=== PATIENT | female | born 1995 | race Caucasian/White ===

== ENCOUNTER 2019-02-02 06:21 | Day surgery (SDC) | payer BC, OTHER ==
[~2019-02-02 06:21] MED LIST: Lactated Ringers 1,000 ML IV SCH
[2019-02-02] MEDS ORDERED: Lidocaine 2% 5 ML SDV ONE (07:06)
[2019-02-02] MEDS ORDERED: Propofol 200 MG/20 ML SDV ONE (07:07)
[2019-02-02] MEDS ORDERED: fentaNYL 100 MCG/2 ML SDV ONE ×2 (07:07→08:15)
[2019-02-02] MEDS ORDERED: Midazolam 1 MG/ML 2 ML SDV ONE (07:07)
--- NOTE | 2019-02-02 07:15 | PCM.PREANE ---
Preanesthetic Assessment - Anesthesia/Transfusion/Family Hx Anesthesia History: Prior Anesthesia Without Reaction Family History of Anesthesia Reaction: No Transfusion History: No Prior Transfusion(s) Intubation History: Unknown - Review of Systems General: No Symptoms Pulmonary: No Symptoms Cardiovascular: No Symptoms Gastrointestinal: No Symptoms Neurological: No Symptoms Other: Reports: None - Physical Assessment O2 Sat by Pulse Oximetry: 98 Respiratory Rate: 18 Vital Signs: Last Vital Signs Temp 36.6 C 02/02/19 06:55 Pulse 72 02/02/19 06:55 Resp 18 02/02/19 06:55 BP 119/56 L 02/02/19 06:55 Pulse Ox 98 02/02/19 06:55 Height: 1.7 m Weight: 65.317 kg ASA Class: 2 Mental Status: Alert & Oriented x3 Airway Class: Mallampati = 2 Dentition: Reports: Normal Dentition Thyro-Mental Finger Breadths: 3 Mouth Opening Finger Breadths: 3 ROM/Head Extension: Full Lungs: Clear to Auscultation, Normal Respiratory Effort Cardiovascular: Regular Rate, Regular Rhythm - Lab Values: Laboratory Last Values Urine HCG, Qual NEGATIVE (NEGATIVE) 02/02/19 06:45 - Allergies Allergies/Adverse Reactions: Allergies Allergy/AdvReac Type Severity Reaction Status Date / Time Penicillins Allergy Cannot Verified 01/30/19 13:10 Remember - Blood Blood Available: No - Anesthesia Plan Pre-Op Medication Ordered: None - Acknowledgements Anesthesia Type Planned: MAC Pt an Appropriate Candidate for the Planned Anesthesia: Yes Alternatives and Risks of Anesthesia Discussed w Pt/Guardian: Yes Pt/Guardian Understands and Agrees with Anesthesia Plan: Yes PreAnesthesia Questionnaire Other HEENT History: wears glasses/contacts Cardiovascular History: Reports: None Respiratory History: Reports: None Gastrointestinal History: Reports: None Genitourinary History: Reports: None Musculoskeletal History: Reports: None Neurological History: Reports: None Psychiatric History: Reports: None Endocrine/Metabolic History: Reports: None Hematologic History: Reports: None Immunologic History: Reports: None Oncologic (Cancer) History: Reports: None Dermatologic History: Reports: None - Past Surgical History Head Surgeries/Procedures: Reports: None HEENT Surgical History: Reports: Oral Surgery Cardiovascular Surgical History: Reports: None Respiratory Surgical History: Reports: None GI Surgical History: Reports: None Female Surgical History: Reports: None Neurological Surgical History: Reports: None Oncologic Surgical History: Reports: None Dermatological Surgical History: Reports: None - SUBSTANCE USE Smoking Status *Q: Never Smoker Recreational Drug Use History: No - HOME MEDS Home Medications: Home Meds . [No Known Home Meds] 01/30/19 [History] - CURRENT (IN HOUSE) MEDS Current Meds: Current Medications Lactated Ringer's (Ringers, Lactated) 1,000 mls @ 100 mls/hr IV ASDIRECTED CATHERINE Last Admin: 02/02/19 06:55 Dose: 100 mls/hr Discontinued Medications Fentanyl (Sublimaze) Confirm Administered Dose 100 mcg .ROUTE .STK-MED ONE Stop: 02/02/19 07:08 Lidocaine (Xylocaine-Mpf 2%) Confirm Administered Dose 5 ml .ROUTE .STK-MED ONE Stop: 02/02/19 07:07 Midazolam HCl (Versed 1 Mg/Ml) Confirm Administered Dose 2 mg .ROUTE .STK-MED ONE Stop: 02/02/19 07:08 Propofol (Diprivan 20 Ml) Confirm Administered Dose 400 mg .ROUTE .STK-MED ONE Stop: 02/02/19 07:08
[2019-02-02] MEDS ORDERED: Lidocaine 1% with EPINEPHrine 1:100,000 10 ML MDV ONE (07:22)
[2019-02-02] MEDS ORDERED: Lidocaine 1% with EPINEPHrine 1:100,000 20 ML MDV ONE (07:23)
[2019-02-02] MEDS ORDERED: EPINEPHrine 1:10,000 1 MG/10 ML Syringe IVPUSH PRN (07:27)
[2019-02-02] MEDS ORDERED: Atropine 0.1 MG/ML 10 ML Syringe IVPUSH PRN ×2 (07:27)
[2019-02-02] MEDS ORDERED: Naloxone 0.4 MG/ML Syringe IVPUSH PRN (07:27)
[2019-02-02] MEDS ORDERED: Albuterol 0.083% 2.5 MG/3 ML Neb Soln NEB PRN (07:27)
[2019-02-02] MEDS ORDERED: 50% Dextrose in Water 50 ML Syringe IVPUSH PRN (07:27)
[2019-02-02] MEDS ORDERED: fentaNYL 100 MCG/2 ML SDV IVPUSH PRN (07:27)
[2019-02-02] MEDS ORDERED: Sodium Chloride 0.9% 2.5 ML Syringe FLUSH PRN (07:27)
[2019-02-02] MEDS ORDERED: Sodium Chloride 0.9% 10 ML SDV IV PRN (07:27)
[2019-02-02] MEDS ORDERED: Sodium Chloride 0.9% 10 ML Syringe FLUSH PRN (07:27)
[2019-02-02] MEDS ORDERED: Bupivacaine 0.5% 10 ML SDV ONE (07:48)
[2019-02-02] MEDS ORDERED: Glycopyrrolate 0.2 MG/ML SDV ONE (07:58)
[2019-02-02] MEDS ORDERED: ePHEDrine 50 MG/ML SDV ONE (08:01)
[2019-02-02] MEDS ORDERED: Sodium Chloride 0.9% 20 ML ONE (08:04)
[2019-02-02] MEDS ORDERED: ceFAZolin 1 GM Vial ONE (08:04)
--- NOTE | 2019-02-02 08:38 | PCM.OPNOTE ---
- General Post-Op/Procedure Note Date of Surgery/Procedure: 02/02/19 Operative Procedure(s): Excision right back mass Findings: 4.2 x 4.2 x 2 cm mass on right back Pre Op Diagnosis: Lipoma Post-Op Diagnosis: same Anesthesia Technique: Local, MAC Primary Surgeon: Bettina Fox Secondary Surgeon: Pauline Montemayor Pathology: right back mass Fluid Replacement, Intraop: 900 Condition: Good
[2019-02-02] MEDS ORDERED: Promethazine 25 MG/ML SDV IM ONE (10:40)
--- NOTE | 2019-02-02 18:00 | OR ---
SURGEON: PARISH CISNEROS MD DATE OF PROCEDURE: 02/02/2019 PREOPERATIVE DIAGNOSIS: Right back mass. POSTOPERATIVE DIAGNOSIS: Right back mass. PROCEDURE PERFORMED: Excision of right back mass. ANESTHESIA: Local, MAC. CONTRACT ADMINISTRATOR: kindergarten assistant: SELVIN Gomes student. FLUIDS: 900 mL crystalloid. ESTIMATED BLOOD LOSS: 5 mL. FINDINGS: 4.2 x 4.2 x 2 cm mass that appears to be a lipoma on the right back. COMPLICATIONS: None. INDICATIONS: The patient is a 23-year-old female who presents with a mass on her right back that is bothersome. The patient and I discussed the need for removal in the operating room. I explained the procedure, expected perioperative course, and risks including bleeding, infection, or damage to surrounding structures. The patient verbalized understanding and wishes to proceed. PROCEDURE IN DETAIL: The patient was brought into the OR and placed on the OR table in the left lateral decubitus position. A time-out was completed verifying the patient's name, age, date of , allergies, and procedure to be performed. Monitored anesthesia care was induced. The right back mass had been marked in the preoperative area. This area was prepped and draped in usual standard fashion. I anesthetized the area overlying and around the mass with 1% lidocaine plain. Once this was completed, I used a 15 blade to make a 4 cm incision horizontally across the top of the mass. Cautery was used to dissect down to the level of subcutaneous fat. I then created skin flaps superior and inferior to the mass. I carried my dissection down to the level of the muscular fascia. The mass was grasped with an Allis and I undermined the lesion using electrocautery. The mass was from the remaining subcutaneous fat and placed on the back table as a firm mass that appeared to be a lipoma. It measured 4.2 x 4.2 x 2 cm in size. It was sent to Pathology. I inspected my operative field. Cautery was used to achieve hemostasis. I irrigated the wound with normal saline. I then closed the wound with interrupted 3-0 Vicryl in multiple layers to close down the potential space left by the mass. I then closed the skin with a running 4-0 Monocryl suture. Steri-Strips and sterile dressings were applied. The patient tolerated the procedure well and was taken to PACU in stable condition. All counts were complete and correct at the end of the case. MILAGROS / MIRNA /[id number]
== END 2019-02-02 11:18 | disposition home or self-care (01) ==
LOC: MW.SDS 06:21
PROVIDERS: ATTEND Surgery
DX: D17.1 Benign lipomatous neoplasm of skin and subcutaneous tissue of trunk (principal); Z88.0 Allergy status to penicillin
CPT/HCPCS: 21931; 81025; J0690; J2001; J2250; J2550; J2704; J3010; J3490; J7120